=== PATIENT | female | born 1960 | race Caucasian/White ===

== ENCOUNTER → 2016-10-11 | Outpatient (CLI) | payer MEDICAID ==
[~2016-10-11] MED LIST: ASCO10004 PO; GLUC1TAB27 PO; LACT1CAP35 PO; MAGNESIUM SUPPLEMENT; METO25TA35 PO; MULTIVITAMIN PO; OMEG1CAP34 PO; OMEP-110 PO; TURMERIC PO
== END | disposition home or self-care (01) ==
LOC: CARD 12:50
PROVIDERS: ATTEND Internal Medicine Critical Care Medicine
DX: R06.02 Shortness of breath (principal)
CPT/HCPCS: 94060; 94620; 94726; 94729